=== PATIENT | female | born 1995 | race Hispanic/Latino ===

== ENCOUNTER 2019-01-28 07:24 | Emergency (ER) | payer SELFPAY ==
[2019-01-28] MEDS ORDERED: NA CHLORIDE 0.9% 1,000 ML ONE (08:10)
[2019-01-28] MEDS ORDERED: ONDANSETRON 4 MG/2 ML VIAL ONE (08:10)
[2019-01-28 08:22] LABS: Absolute Lymphocytes (CBC) 0.5 K/uL (0.7-4.9); Absolute Monocytes 0.4 K/uL (0.1-1.3); Absolute Neutrophil 6.3 K/uL (1.8-8.0); Basophils % 0.1 % (0-1.3); Eosinophils % 0.2 % (0-4.4); Hematocrit 38.6 % (36.0-45.0); MPV 9.1 fL (7.6-11.3); Monocytes % 5.2 % (3.3-12.3); RBC Red Blood Cell Count 4.34 M/uL (3.86-4.86)
[2019-01-28 08:32] LABS: ALT/SGPT 35 U/L (12-78); AST/SGOT 26 U/L (15-37); Albumin 3.9 g/dL (3.4-5.0); Alkaline Phosphatase 54 U/L (45-117); BUN Blood Urea Nitrogen 10 mg/dL (7-18); Bicarbonate 26 mmol/L (21-32); Bilirubin Direct 0.1 mg/dL (0-0.2); Bilirubin Total 0.4 mg/dL (0.2-1.0); Glucose Level 96 mg/dL (74-106); Lipase 80 U/L (73-393); Potassium 3.6 mmol/L (3.5-5.1); Protein, Total 7.9 g/dL (6.4-8.2); Sodium Level 140 mmol/L (136-145)
[2019-01-28 08:53] LABS: Blood Morphology Comment NOT SEEN (NOT SEEN); Platelet Estimate ADEQ
[2019-01-28] MEDS ORDERED: FAMOTIDINE 20 MG/2 ML VIAL IV ONE (08:56)
[2019-01-28] MEDS ORDERED: KETOROLAC 30 MG/ML INJ ONE (09:05)
--- NOTE | 2019-01-28 09:47 | RAD REPORT ---
EXAM DESCRIPTION: CT - Abdomen Pelvis W Contrast - 01/28/2019 9:06 am CLINICAL HISTORY: Abdominal pain with vomiting and diarrhea COMPARISON: 2015 TECHNIQUE: Computed axial tomography of the abdomen pelvis was obtained. 100 cc Isovue-300 was admin istered intravenously. Oral contrast was not requested which limits evaluation of bowel. All CT scans are performed using dose optimization technique as appropriate and may include automated exposure control or mA/KV adjustment according to patient size. FINDINGS: A 17 millimeter enhancing lesion within the right lobe of the liver is unchanged. Prominen ce of the left lobe of the liver is unchanged. Hepatic and splenic granulomata Pancreas, adrenal and kidneys appear unremarkable. There is no evidence of diverticulitis. The appendix is normal. An adnexal mass is not seen. An IUD is present within uterine body. IMPRESSION: An IUD is low lying within the uterine body. Stable 17 millimeter enhancing hepatic lesion likely represents a hemangioma
--- NOTE | 2019-01-28 10:07 | EDPHYS ---
Physician Documentation [facility] Name: Allison Lock Age: 23 yrs Sex: Female : 1995 Arrival Date: 01/28/2019 Time: 07:25 Bed 14 Private MD: ED Physician Lee Fernandez HPI: 01/28 07:45 This 23 yrs old Female presents to ER via Ambulatory with complaints of kdr Abdominal Pain, Vomiting/Diarrhea. 07:45 The patient presents to the emergency department with nausea, that is mild, that is kdr moderate, vomiting, that is intermittent, diarrhea, that is intermittent, abdominal pain, of the abdomen diffusely. Onset: The symptoms/episode began/occurred The patient ate a hamburger last night and about an hour later, she began to have vomiting and diarrhea. Also generalized abdominal pain. Possible causes: bad food exposure, hamburger. The symptoms are aggravated by nothing. The symptoms are alleviated by nothing. Associated signs and symptoms: Pertinent positives: abdominal pain, diarrhea, nausea, vomiting. Severity of symptoms: At their worst the symptoms were mild moderate just prior to arrival, in the emergency department the symptoms are unchanged. The patient has not experienced similar symptoms in the past. The patient has not recently seen a physician. 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 - Social history:: Smoking status: Patient/guardian denies using tobacco. - Ebola Screening: : Patient negative for fever greater than or equal to 101.5 degrees Fahrenheit, and additional compatible Ebola Virus Disease symptoms Patient denies exposure to infectious person Patient denies travel to an Ebola-affected area in the 21 days before illness onset No symptoms or risks identified at this time. ROS: 07:45 Constitutional: Negative for fever, chills, and weight loss, Eyes: Negative for injury, kdr pain, redness, and discharge, ENT: Negative for injury, pain, and discharge, Neck: Negative for injury, pain, and swelling, Cardiovascular: Negative for chest pain, palpitations, and edema, Respiratory: Negative for shortness of breath, cough, wheezing, and pleuritic chest pain, Back: Negative for injury and pain, : Negative for injury, bleeding, discharge, and swelling, MS/Extremity: Negative for injury and deformity, Skin: Negative for injury, rash, and discoloration, Neuro: Negative for headache, weakness, numbness, tingling, and seizure activity. Psych: Negative for depression, anxiety, suicide ideation, homicidal ideation, and hallucinations, Allergy/Immunology: Negative for hives, rash, and allergies, Endocrine: Negative for neck swelling, polydipsia, polyuria, polyphagia, and marked weight changes, Hematologic/Lymphatic: Negative for swollen nodes, abnormal bleeding, and unusual bruising. 07:45 Abdomen/GI: Positive for abdominal pain, nausea, vomiting, and diarrhea, abdominal cramps, Negative for constipation, abdominal distension, anorexia, dysphagia, hematemesis, black/tarry stool, rectal pain, rectal bleeding, bowel incontinence. Exam: 07:45 Constitutional: This is a well developed, well nourished patient who is awake, alert, kdr and in no acute distress. Head/Face: Normocephalic, atraumatic. Eyes: Pupils equal round and reactive to light, extra-ocular motions intact. Lids and lashes normal. Conjunctiva and sclera are non-icteric and not injected. Cornea within normal limits. Periorbital areas with no swelling, redness, or edema. Neck: Trachea midline, no thyromegaly or masses palpated, and no cervical lymphadenopathy. Supple, full range of motion without nuchal rigidity, or vertebral point tenderness. No Meningismus. Chest/axilla: Normal chest wall appearance and motion. Nontender with no deformity. No lesions are appreciated. Cardiovascular: Regular rate and rhythm with a normal S1 and S2. No gallops, murmurs, or rubs. Normal PMI, no JVD. No pulse deficits. Respiratory: Lungs have equal breath sounds bilaterally, clear to auscultation and percussion. No rales, rhonchi or wheezes noted. No increased work of breathing, no retractions or nasal flaring. Skin: Warm, dry with normal turgor. Normal color with no rashes, no lesions, and no evidence of cellulitis. MS/ Extremity: Pulses equal, no cyanosis. Neurovascular intact. Full, normal range of motion. Neuro: Awake and alert, GCS 15, oriented to person, place, time, and situation. Cranial nerves II-XII grossly intact. Motor strength 5/5 in all extremities. Sensory grossly intact. Cerebellar exam normal. Normal gait. Psych: Awake, alert, with orientation to person, place and time. Behavior, mood, and affect are within normal limits. 07:45 Abdomen/GI: Inspection: abdomen appears normal, Bowel sounds: diminished, in all quadrants, Palpation: soft, mild abdominal tenderness, in all quadrants, The patient also had mild back pain. Vital Signs: 07:33 BP 104 / 69; Pulse 98; Resp 16; Temp 98.9; Pulse Ox 99% ; Weight 62.14 kg; Height 5 ft. bp 4 in. (162.56 cm); 08:30 BP 103 / 68; Pulse 94; Resp 14; Pulse Ox 100% ; bp 07:33 Body Mass Index 23.52 (62.14 kg, 162.56 cm) bp MDM: 10:05 Patient medically screened. kdr 13:36 Data reviewed: vital signs, nurses notes, lab test result(s), radiologic studies. kdr Counseling: I had a detailed discussion with the patient and/or guardian regarding: the historical points, exam findings, and any diagnostic results supporting the discharge/admit diagnosis, lab results, radiology results, the need for outpatient follow up. 01/28 07:44 Order name: Basic Metabolic Panel; Complete Time: 08:39 kdr 01/28 07:44 Order name: CBC with Diff; Complete Time: 09:34 kdr 01/28 07:44 Order name: Creatinine for Radiology; Complete Time: 08:39 kdr 01/28 07:44 Order name: Hepatic Function; Complete Time: 08:39 kdr 01/28 07:44 Order name: Lipase; Complete Time: 08:39 kdr 01/28 08:04 Order name: Urine Dipstick--Ancillary (enter results) eb 01/28 07:44 Order name: IV Saline Lock; Complete Time: 08:08 kdr 01/28 08:04 Order name: Urine --Ancillary (enter results) eb 01/28 08:30 Order name: Manual Differential; Complete Time: 09:34 EDMS 01/28 08:43 Order name: CT Abd/Pelvis - W/Contrast; Complete Time: 10:03 kdr 01/28 07:44 Order name: Labs collected and sent; Complete Time: 08:08 kdr 01/28 07:45 Order name: Urine Test (obtain specimen); Complete Time: 08:08 kdr Administered Medications: 08:00 Drug: Zofran 4 mg Route: IVP; Site: right forearm; bp 08:58 Follow up: Response: Nausea is decreased bp 08:00 Drug: NS 0.9% 1000 ml Route: IV; Rate: 1 bolus; Site: right forearm; bp 08:45 Drug: Pepcid 20 mg {Note: RECD FROM PHARMACY AT 0845.} Route: IVP; Site: right forearm; bp 08:58 Follow up: Response: Nausea is decreased bp 08:55 Drug: TORadol 15 mg Route: IVP; Site: right forearm; bp 10:24 Follow up: Response: No adverse reaction bp Disposition: 01/28/19 10:05 Discharged to Home. Impression: Abdominal and pelvic pain, Nausea and vomiting, Diarrhea, unspecified, Gastroenteritis. - Condition is Stable. - Discharge Instructions: Food Choices to Help Relieve Diarrhea, Adult, Nausea and Vomiting, Adult, [id number], Abdominal Pain, Adult, [id number], Diarrhea, Adult, [id number]. - Prescriptions for Bentyl 20 mg Oral Tablet - take 1 tablet by ORAL route every 6 hours As needed; 20 tablet. Pepcid 20 mg Oral Tablet - take 1 tablet by ORAL route every 12 hours for 5 days; 10 tablet. Zofran 4 mg Oral Tablet - take 1 tablet by ORAL route every 12 hours As needed; 6 tablet. Tramadol 50 mg Oral Tablet - take 1 tablet by ORAL route every 8 hours as needed; 12 tablet. - Medication Reconciliation Form, Thank You Letter, Prescription Opioid Use, Work release form form. - Follow up: Private Physician; When: 2 - 3 days; Reason: If symptoms return, Further diagnostic work-up, Recheck today's complaints, Continuance of care, Re-evaluation by your physician. - Problem is new. - Symptoms have improved. Signatures: Dispatcher [employer] EDMS Lee Fernandez MD MD kdr Humberto Bowden, RN RN bp Corrections: (The following items were deleted from the chart) 10:34 10:05 01/28/2019 10:05 Discharged to Home. Impression: Abdominal and pelvic pain; bp Nausea and vomiting; Diarrhea, unspecified; Gastroenteritis. Condition is Stable. Forms are Medication Reconciliation Form, Thank You Letter, Antibiotic Education, Prescription Opioid Use. Follow up: Private Physician; When: 2 - 3 days; Reason: If symptoms return, Further diagnostic work-up, Recheck today's complaints, Continuance of care, Re-evaluation by your physician. Problem is new. Symptoms have improved. kdr
--- NOTE | 2019-01-28 10:07 | ER ---
Nurse's Notes [facility] Name: Allison Lock Age: 23 yrs Sex: Female : 1995 Arrival Date: 01/28/2019 Time: 07:25 Bed 14 Private MD: Diagnosis: Abdominal and pelvic pain;Nausea and vomiting;Diarrhea, unspecified;Gastroenteritis Presentation: 01/28 07:32 Presenting complaint: Patient states: DIFFUSE ABDOMINAL PAIN WITH NAUSEA, VOMITING AND bp DIARRHEA. Transition of care: patient was not received from another setting of care. Onset of symptoms was January 27, 2019 at 23:00. Risk Assessment: Do you want to hurt yourself or someone else? Patient reports no desire to harm self or others. Initial Sepsis Screen: Does the patient meet any 2 criteria? No. Patient's initial sepsis screen is negative. Does the patient have a suspected source of infection? No. Patient's initial sepsis screen is negative. Care prior to arrival: None. 07:32 Method Of Arrival: Ambulatory bp 07:32 Acuity: IRAJ 3 bp Triage Assessment: 07:33 General: Appears in no apparent distress. uncomfortable, slender, Behavior is bp cooperative, appropriate for age, anxious. Pain: Complains of pain in abdomen. EENT: No deficits noted. Neuro: Level of Consciousness is awake, alert, obeys commands, Oriented to person, place, time, situation, Appropriate for age. Cardiovascular: No deficits noted. Respiratory: Airway is patent Respiratory effort is even, unlabored, Respiratory pattern is regular, symmetrical. GI: Reports lower abdominal pain, upper abdominal pain, cramping, diarrhea, nausea, vomiting. : No signs and/or symptoms were reported regarding the genitourinary system. Derm: No deficits noted. Musculoskeletal: Circulation, motion, and sensation intact. Range of motion: intact in all extremities. 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 - Social history:: Smoking status: Patient/guardian denies using tobacco. - Ebola Screening: : Patient negative for fever greater than or equal to 101.5 degrees Fahrenheit, and additional compatible Ebola Virus Disease symptoms Patient denies exposure to infectious person Patient denies travel to an Ebola-affected area in the 21 days before illness onset No symptoms or risks identified at this time. Screenin:35 Abuse screen: Denies threats or abuse. Denies injuries from another. Nutritional bp screening: No deficits noted. Tuberculosis screening: No symptoms or risk factors identified. Fall Risk None identified. Assessment: 07:35 General: SEE TRIAGE NOTE. 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 bp 09:10 Reassessment: PT RETURNED FROM CT. ALL CURRENT ORDERS COMPLETE. bp 10:26 Reassessment: PT D/C HOME AMBULATORY WITH FAMILY, DX WITH ABDOMINAL PAIN. bp 10:32 GI: Bowel sounds present X 4 quads. bp 10:33 GI: Abd is soft. bp Vital Signs: 07:33 BP 104 / 69; Pulse 98; Resp 16; Temp 98.9; Pulse Ox 99% ; Weight 62.14 kg; Height 5 ft. bp 4 in. (162.56 cm); 08:30 BP 103 / 68; Pulse 94; Resp 14; Pulse Ox 100% ; bp 07:33 Body Mass Index 23.52 (62.14 kg, 162.56 cm) bp ED Course: 07:25 Patient arrived in ED. as 07:27 Lee Fernandez MD is Attending Physician. kdr 07:30 Humberto Bowden, ANGEL is Primary Nurse. bp 07:33 Triage completed. bp 07:33 Arm band placed on left wrist. bp 07:35 Patient has correct armband on for positive identification. Bed in low position. Call bp light in reach. Side rails up X2. 08:00 Inserted saline lock: 20 gauge in right forearm, using aseptic technique. Blood bp collected. 09:08 CT Abd/Pelvis - W/Contrast In Process Unspecified. EDMS 10:27 No provider procedures requiring assistance completed. IV discontinued, intact, bp bleeding controlled, No redness/swelling at site. Pressure dressing applied. Administered Medications: 08:00 Drug: Zofran 4 mg Route: IVP; Site: right forearm; bp 08:58 Follow up: Response: Nausea is decreased bp 08:00 Drug: NS 0.9% 1000 ml Route: IV; Rate: 1 bolus; Site: right forearm; bp 08:45 Drug: Pepcid 20 mg {Note: RECD FROM PHARMACY AT 0845.} Route: IVP; Site: right forearm; bp 08:58 Follow up: Response: Nausea is decreased bp 08:55 Drug: TORadol 15 mg Route: IVP; Site: right forearm; bp 10:24 Follow up: Response: No adverse reaction bp Outcome: 10:05 Discharge ordered by . kdr 10:28 Discharged to home ambulatory, with family. bp 10:28 Condition: stable 10:28 Discharge instructions given to patient, family, Instructed on discharge instructions, follow up and referral plans. medication usage. 10:34 Patient left the ED. bp Signatures: Dispatcher [employer] EDMS Lee Fernandez MD MD kdr Martinez, Amelia as Peltier, Brian, RN RN bp
[2019-01-28 11:18] LABS: Urine Blood 3+ (NEG); Urine Glucose NEGATIVE (NEG); Urine Protein 1+ (NEG); Urine Specific Gravity 1.015 (1.005-1.030); Urine pH 7.5 (5.0-7.0)
== END 2019-01-28 10:34 | disposition home or self-care (01) ==
LOC: ER 07:24
DX: K52.9 Noninfective gastroenteritis and colitis, unspecified (principal); F41.9 Anxiety disorder, unspecified
CPT/HCPCS: 36415; 74177; 80048; 80076; 81003; 81025; 83690; 85025; 96374; 96375; 99284; J2405; J7030; Q9967

== ENCOUNTER 2020-05-03 14:02 | Emergency (ER) | payer SELFPAY, OTHER ==
--- NOTE | 2020-05-03 15:26 | ER ---
Nurse's Notes [facility] Name: Allison Lock Age: 24 yrs Sex: Female : 1995 Arrival Date: 05/03/2020 Time: 14:05 Bed 20 Private MD: Diagnosis: Acute upper respiratory infection, unspecified Presentation: 05/03 14:32 Chief complaint: Patient states: Fever, headaches, body aches, cough and feeling ill ca1 since yesterday. 4-5 weeks. Coronavirus screen: Patient reports a cough. Patient denies shortness of breath or difficulty breathing. Patient reports a measured and/or subjective temperature greater than 100.4F. Patient denies travel on a cruise ship or to a country the [facility] currently lists as an affected area. Patient denies contact with known and/or suspected case of COVID-19. Surgical mask in place. Instructed on keeping mask at all times and keep 6 feet distance from other people in the lobby. Verbalized understanding. Ebola Screen: Patient negative for fever greater than or equal to 101.5 degrees Fahrenheit, and additional compatible Ebola Virus Disease symptoms Patient denies exposure to infectious person. Patient denies travel to an Ebola-affected area in the 21 days before illness onset. No symptoms or risks identified at this time. Initial Sepsis Screen: Does the patient meet any 2 criteria? No. Patient's initial sepsis screen is negative. Does the patient have a suspected source of infection? No. Patient's initial sepsis screen is negative. Risk Assessment: Do you want to hurt yourself or someone else? Patient reports no desire to harm self or others. Onset of symptoms was May 03, 2020. 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 - Social history:: Smoking status: Patient denies any tobacco usage or history of. Screenin:56 Abuse screen: Denies threats or abuse. Nutritional screening: No deficits noted. ll1 Tuberculosis screening: No symptoms or risk factors identified. Fall Risk None identified. Total Amaro Fall Scale indicates No Risk (0-24 pts). Assessment: 15:54 General: Appears uncomfortable, Behavior is calm, cooperative. Pain: Complains of pain ll1 in head Pain currently is 6 out of 10 on a pain scale. Quality of pain is described as aching. Neuro: Level of Consciousness is awake, alert, obeys commands, Oriented to person, place, time, situation, Appropriate for age Exhauster are equal bilaterally Moves all extremities. Full function Gait is steady, Speech is normal, Facial symmetry appears normal, Reports numbness. Cardiovascular: No deficits noted. Respiratory: Reports cough that is Airway is patent Trachea midline Respiratory effort is even, unlabored, Respiratory pattern is regular, symmetrical, Breath sounds are clear bilaterally. GI: Bowel sounds present X 4 quads. Abd is soft and non tender X 4 quads. Reports nausea, vomiting, 4-5 weeks . Musculoskeletal: Reports body aches. Vital Signs: 14:32 BP 113 / 77; Pulse 87; Resp 15 S; Temp 98.3(TE); Pulse Ox 100% on R/A; Weight 64.41 kg ca1 (R); Height 5 ft. 4 in. (162.56 cm) (R); 14:32 Body Mass Index 24.37 (64.41 kg, 162.56 cm) ca1 ED Course: 14:05 Patient arrived in ED. mr 14:35 Triage completed. ca1 14:35 Arm band placed on right wrist. ca1 14:47 Kaz Urrutia, ANGEL is Primary Nurse. ll1 14:50 Keturah Rubio FNP-C is [facility]. kb 14:50 Lee Fernandez MD is Attending Physician. kb 15:56 Patient has correct armband on for positive identification. Bed in low position. Call ll1 light in reach. Side rails up X 1. 15:56 No provider procedures requiring assistance completed. Patient did not have IV access ll1 during this emergency room visit. 05/04 09:22 Health Dept notified/ PUI # [id number]/ Maddie from lab notified. eb Administered Medications: 05/03 15:43 Drug: Tylenol 1000 mg Route: PO; ll1 15:54 Follow up: Response: No adverse reaction; Pain is decreased; RASS: Alert and Calm (0) 1 15:43 Drug: Phenergan 12.5 mg Route: PO; ll1 15:53 Follow up: Response: No adverse reaction; Nausea is decreased; RASS: Alert and Calm (0) ll1 Outcome: 15:25 Discharge ordered by MD. [place] 15:56 Discharged to home ambulatory. ll1 15:56 Condition: stable 15:56 Discharge instructions given to patient, Instructed on discharge instructions, follow up and referral plans. Demonstrated understanding of instructions, follow-up care. 15:56 Patient left the ED. 1 Signatures: Keturah Rubio, DIRECTOR LIFE SCIENCES-C DIRECTOR LIFE SCIENCES-Gina Shah mr Alma Ragland Cheryl RN RN ca1 Kaz Urrutia RN RN ll1
--- NOTE | 2020-05-03 15:26 | EDPHYS ---
Physician Documentation [facility] Name: Allison Lock Age: 24 yrs Sex: Female : 1995 Arrival Date: 05/03/2020 Time: 14:05 Bed 20 Private MD: ED Physician Lee Fernandez HPI: 05/03 15:23 This 24 yrs old Female presents to ER via Ambulatory with complaints of 4wks kb , Cough, Fever. 15:23 The patient or guardian reports cough, that is intermittent, described as mild, with no kb sputum, flu symptoms, low-grade fever. Onset: The symptoms/episode began/occurred yesterday. Severity of symptoms: At their worst the symptoms were mild, in the emergency department the symptoms are unchanged. Modifying factors: The symptoms are alleviated by nothing, the symptoms are aggravated by nothing. Associated signs and symptoms: Pertinent positives: fever, Pertinent negatives: chest pain, diarrhea, ear ache, nausea, rhinorrhea, sore throat, vomiting. The patient has not experienced similar symptoms in the past. The patient has not recently seen a physician. Pt reports cough, fever and chills since yesterday. States she is approx 4 weeks so she wasn't sure what she could take for the symptoms. COURT LIAISON: 14:35 2, Full Term 1, Living 1, LMP 03/28/2020 ca1 Historical: - Allergies: 14:35 No Known Allergies; ca1 - Home Meds: 14:35 Vitamin Oral [Active]; ca1 - PMHx: 14:35 Anxiety; ca1 - PSHx: 14:35 None; ca1 - Immunization history:: Adult Immunizations up to date. - Social history:: Smoking status: Patient denies any tobacco usage or history of. ROS: 15:21 Neck: Negative for injury, pain, and swelling, Cardiovascular: Negative for chest pain, kb palpitations, and edema, Abdomen/GI: Negative for abdominal pain, nausea, vomiting, diarrhea, and constipation, Back: Negative for injury and pain, MS/Extremity: Negative for injury and deformity, Skin: Negative for injury, rash, and discoloration, Neuro: Negative for headache, weakness, numbness, tingling, and seizure. 15:21 Constitutional: Positive for chills, fever, Negative for body aches, fatigue, malaise, poor PO intake, weight loss. 15:21 Respiratory: Positive for cough, Negative for dyspnea on exertion, hemoptysis, orthopnea, pleurisy, shortness of breath, sputum production, wheezing. Exam: 15:21 Constitutional: This is a well developed, well nourished patient who is awake, alert, kb and in no acute distress. Head/Face: Normocephalic, atraumatic. ENT: Nares patent. No nasal discharge, no septal abnormalities noted. Tympanic membranes are normal and external auditory canals are clear. Oropharynx with no redness, swelling, or masses, exudates, or evidence of obstruction, uvula midline. Mucous membranes moist. Neck: Trachea midline, no thyromegaly or masses palpated, and no cervical lymphadenopathy. Supple, full range of motion without nuchal rigidity, or vertebral point tenderness. No Meningismus. Chest/axilla: Normal chest wall appearance and motion. Nontender with no deformity. No lesions are appreciated. Cardiovascular: Regular rate and rhythm with a normal S1 and S2. No gallops, murmurs, or rubs. Normal PMI, no JVD. No pulse deficits. Respiratory: Lungs have equal breath sounds bilaterally, clear to auscultation and percussion. No rales, rhonchi or wheezes noted. No increased work of breathing, no retractions or nasal flaring. Abdomen/GI: Soft, non-tender, with normal bowel sounds. No distension or tympany. No guarding or rebound. No evidence of tenderness throughout. Skin: Warm, dry with normal turgor. Normal color with no rashes, no lesions, and no evidence of cellulitis. MS/ Extremity: Pulses equal, no cyanosis. Neurovascular intact. Full, normal range of motion. Neuro: Awake and alert, GCS 15, oriented to person, place, time, and situation. Cranial nerves II-XII grossly intact. Motor strength 5/5 in all extremities. Sensory grossly intact. Cerebellar exam normal. Normal gait. Vital Signs: 14:32 BP 113 / 77; Pulse 87; Resp 15 S; Temp 98.3(TE); Pulse Ox 100% on R/A; Weight 64.41 kg ca1 (R); Height 5 ft. 4 in. (162.56 cm) (R); 14:32 Body Mass Index 24.37 (64.41 kg, 162.56 cm) ca1 MDM: 14:50 Patient medically screened. kb 15:22 Data reviewed: vital signs, nurses notes. Data interpreted: Pulse oximetry: on room air kb is 100 %. Interpretation: normal. Counseling: I had a detailed discussion with the patient and/or guardian regarding: the historical points, exam findings, and any diagnostic results supporting the discharge/admit diagnosis, the need for outpatient follow up, a family practitioner, to return to the emergency department if symptoms worsen or persist or if there are any questions or concerns that arise at home. 05/03 15:09 Order name: COVID-19 kb Administered Medications: 15:43 Drug: Tylenol 1000 mg Route: PO; ll1 15:54 Follow up: Response: No adverse reaction; Pain is decreased; RASS: Alert and Calm (0) ll1 15:43 Drug: Phenergan 12.5 mg Route: PO; ll1 15:53 Follow up: Response: No adverse reaction; Nausea is decreased; RASS: Alert and Calm (0) ll1 Disposition: 05/04 15:55 Co-signature as Attending Physician, Lee Fernandez MD I agree with the assessment and kdr plan of care. Disposition: 05/03/20 15:25 Discharged to Home. Impression: Acute upper respiratory infection, unspecified. - Condition is Stable. - Discharge Instructions: Viral Respiratory Infection, [id number], COVID-19. - Medication Reconciliation Form, Thank You Letter, Antibiotic Education, Prescription Opioid Use form. - Follow up: Emergency Department; When: As needed; Reason: Worsening of condition. Follow up: Private Physician; When: 2 - 3 days; Reason: Recheck today's complaints, Continuance of care, Re-evaluation by your physician. Addendum: 05/06/2020 10:14 Addendum: Pt has been called 3 times to notify of COVID + results, no answer. . r n Signatures: Dispatcher [employer] EDKeturah Rowland, Lee Harrison MD MD kdr Nieto, Roman, MD MD rn Acnatty, Jessica, RN RN ca1 Kaz Urrutia RN RN ll1 Corrections: (The following items were deleted from the chart) 05/03 15:56 15:25 05/03/2020 15:25 Discharged to Home. Impression: Acute upper respiratory ll1 infection, unspecified. Condition is Stable. Forms are Medication Reconciliation Form, Thank You Letter, Antibiotic Education, Prescription Opioid Use. Follow up: Emergency Department; When: As needed; Reason: Worsening of condition. Follow up: Private Physician; When: 2 - 3 days; Reason: Recheck today's complaints, Continuance of care, Re-evaluation by your physician. kb
[2020-05-03] MEDS ORDERED: ACETAMINOPHEN 500 MG TAB ONE (15:37)
[2020-05-03] MEDS ORDERED: PROMETHAZINE 25 MG TABLET ONE (15:37)
--- OUTSIDE RECORDS SUMMARY | 2020-05-03 15:46 | XMS REPORT | Summary of Care ---
:1995 Author Organization [facility] - Health Address [address] [place] [id number] Care Team Providers Name Role Phone Shruti Ferrer [facility] Primary Care Provider [phone] Encounter Details Date Type Department Care Team Description 04/26/2020 Orders Only [facility] Doctor Unassigned, No [address] [facility] [place] [address] [address] [place] [address] Allergies No Known Allergiesdocumented as of this encounter (statuses as of 04/26/2020) Medications Medication Sig Dispensed Refills Start Date End Date Status norgestimate-ethinyl Take 1 tablet by 3 Package 0 11/12/2017 Active estradiol mouth daily. 0.18/0.215/0.25 mg-35 mcg (28) tabletIndications: Irregular menstrual cycle, Encounter for initial prescription of contraceptive pills Hospital, Clinic, or Other Ordered Dose Route Frequency Start Date End Date Status Facility Administered Medication medroxyPROGESTERone 150 mg IM [id number] 09/16/2017 Active (DEPO-PROVERA) injection 150 mgIndications: Depo-Provera contraceptive status documented as of this encounter (statuses as of 04/26/2020) Active Problems Problem Noted Date Decreased libido 02/03/2018 Encounter for contraceptive management, unspecified ty pe 09/16/2017 Family planning, IUD (intrauterine device) check/reins ertion/removal 09/16/2017 Depo-Provera contraceptive status 09/16/2017 Encounter for IUD insertion 12/03/2016 Well woman exam 11/18/2016 Other general counseling and advice for contraceptive management 11/18/2016 Lump or mass in breast 11/18/2016 documented as of this encounter (statuses as of 04/26/2020) Immunizations Name Administration Dates Next Due HPV9 11/18/2016 TDAP 10/26/2014 documented as of this encounter Social History Tobacco Use Types Packs/Day Years Used Date Never Smoker Smokeless Tobacco: Never Used Alcohol Use Drinks/Week oz/Week Comments No 0 Standard drinks or equivalent 0.0 Sex Assigned at Date Recorded Not on file Job Start Date Occupation Industry Not on file Not on file Not on file Travel History Travel Start Travel End No recent travel history available. documented as of this encounter Last Filed Vital Signs Not on filedocumented in this encounter Plan of Treatment Date Type Specialty Care Team Description 04/26/2020 Initial Visit [facility] [place], [employer] [address] [place] [address] 15 [phone] Health Maintenance Due Date Last Done Comments VARICELLA VACCINES (1 of 2 - 1998 2-dose childhood series) MENINGOCOCCAL B VACCINES (1 of 12/26/2007 2 - Risk Bexsero 2-dose series) Depression Screening 2009 HPV VACCINES (2 - Female 12/16/2016 11/18/2016 3-dose series) CHLAMYDIA SCREENING 12/03/2017 12/03/2016, 11/18/2016 PAP SMEAR 2018 INFLUENZA VACCINE (#1) 2020 DTaP,Tdap,and Td Vaccines (2 - 10/26/2024 10/26/2014 Td) MENINGOCOCCAL VACCINE Aged Out No longer eligible based on patient's age to complete this to pic PNEUMOCOCCAL 0-64 YEARS Aged Out No longe r eligible based COMBINED SERIES on patient's age to complete this to pic documented as of this encounter Procedures Procedure Name Priority Date/Time Associated Diagnosis Comme nts ASSIGNMENT OF BENEFITS Routine 04/26/2020 2:03 PM CDT documented in this encounter Results Not on filedocumented in this encounter Insurance Payer Benefit Plan Subscriber ID Effective Phone Address Typ e / Group Dates [facility] xxxxxxxxx 2017-Pres [phone] Medicaid WOMEN ent [address] [place] [address] documented as of this encounter
--- OUTSIDE RECORDS SUMMARY | 2020-05-03 15:46 | XMS REPORT | Continuity of Care Document ---
:[address] [facility] [place] [place] t Address [address] [place] [address] Care Team Providers Name Role Phone Sergio LAZAR, Raul Attending Clinician Problems This patient has no known problems. Allergies, Adverse Reactions, Alerts This patient has no known allergies or adverse reactions. Medications This patient has no known medications. Procedures This patient has no known procedures. Encounters Start End Encounter Admission Attending Care Care Encounter Source Date/Time Date/Time Type Type Clinicians Facility Department ID 2020-04-26 2020-04-26 Initial Sergio [facility] [phone] [id number] 14:21:48 15:50:49 Symone Carter PARTS PERSON [id number] Visit REGIONAL [id number] MATERNAL [id number] & CHILD [address] [place] [address] Results This patient has no known results.
--- OUTSIDE RECORDS SUMMARY | 2020-05-03 15:47 | XMS REPORT | Summary of Care ---
:1995 Author Organization [facility] Address [address] [place] [id number] Care Team Providers Name Role Phone Shruti Ferrer [facility] Primary Care Provider Reason for Visit Reason Comments Initial Visit Encounter Details Date Type Department Care Team Description 04/26/2020 Initial [facility] pervision of high risk in first trimester (Primary Dx); Visit CADY Raya Multiparity [address] [facility], [place] [address] [facility] [place] [id number] [phone] Allergies No Known Allergiesdocumented as of this encounter (statuses as of 04/26/2020) Medications Medication Sig Dispensed Refills Start Date End Date Status norgestimate-ethinyl Take 1 tablet 3 Package 0 11/12/20170 11/2019 Discontinued estradiol by mouth 0.18/0.215/0.25 daily. mg-35 mcg (28) tabletIndications: Irregular menstrual cycle, Encounter for initial prescription of contraceptive pills Hospital, Clinic, or Other Ordered Dose Route Frequency Start Date End Date Status Facility Administered Medication medroxyPROGESTERone 150 mg IM [id number] 09/16/2017 Active (DEPO-PROVERA) injection 150 mgIndications: Depo-Provera contraceptive status documented as of this encounter (statuses as of 04/26/2020) Active Problems Problem Noted Date Supervision of high risk in first trimester 04/26/2020 Multiparity 04/26/2020 Estimated Date of Delivery Comments Yes 01/02/2021 Based on last menstr ual period of 03/28/2020 (Approximate) documented as of this encounter (statuses as of 04/26/2020) Resolved Problems Problem Noted Date Resolved Date Decreased libido 02/03/2018 04/26/2020 Encounter for contraceptive management, unspecified type 04/26/2020 Family planning, IUD (intrauterine device) 09/16/2017 04/26/2020 check/reinsertion/removal Depo-Provera contraceptive status 09/16/20172019 Encounter for IUD insertion 12/03/2016 04/26/2020 Well woman exam 11/18/2016 04/26/2020 Other general counseling and advice for contraceptive 201604/26/2020 management Lump or mass in breast 11/18/2016 04/26/2020 documented as of this encounter (statuses as of 04/26/2020) Immunizations Name Administration Dates Next Due HPV9 11/18/2016 TDAP 10/26/2014 documented as of this encounter Social History Tobacco Use Types Packs/Day Years Used Date Never Smoker Smokeless Tobacco: Never Used Alcohol Use Drinks/Week oz/Week Comments No 0 Standard drinks or equivalent 0.0 Estimated Date of Delivery Comments Yes 01/02/2021 Based on last menstr ual period of 03/28/2020 (Approximate) Sex Assigned at Date Recorded Not on file Job Start Date Occupation Industry Not on file Not on file Not on file Travel History Travel Start Travel End No recent travel history available. COVID-19 Exposure Response Date Recorded In the last month, have you been in contact with No / Unsure 04/26/2020 2:49 PM CDT someone who was confirmed or suspected to have Coronavirus / COVID-19? documented as of this encounter Last Filed Vital Signs Vital Sign Reading Time Taken Comments Blood Pressure 120/74 04/26/2020 2:51 PM CDT Pulse 91 04/26/2020 2:51 PM CDT Temperature 37.7 C (99.8 F) 04/26/2020 2:51 PM CDT Respiratory Rate 16 04/26/2020 2:51 PM CDT Oxygen Saturation - - Inhaled Oxygen Concentration - - Weight 64.5 kg (142 lb 2 oz) 04/26/2020 2:51 PM CDT Height 162.6 cm (5' 4") 04/26/2020 2:51 PM CDT Body Mass Index 24.4 04/26/2020 2:51 PM CDT documented in this encounter Patient Instructions Patient InstructionsDiallo Rowland RN - 04/26/2020 2:30 PM CDT Patient Education Pautas de prevencin para mujeres de entre 18 y 39aos de edad Las pruebas de deteccin y las vacunas son importantes para el manejo de robbins lexus. Las pruebas de deteccin se realizan para detectar posibles trastornos o enfermedades en personas que no tienen ningn sntoma. El objetivo es encontrar savannah enfermedad de manera temprana para poder hacer cambios en el estilo de shubham y para que lo puedan controlar de cerca para reducir los riesgos de sufrir savannah enfermedad, o para detectarla a tiempo y poder tratarla de manera eficaz. Las pruebas de deteccin no son pruebas de diagnstico, wilfredo se usan para decidir si se deben realizar otros estudios. La consejera sobre robbins lexus tambin es esencial. A continuacin, narcisa pautas en relacin con esos temas para mujeres de entre 18 y 39aos de edad. Hable con robbins proveedor de atencin mdica para asegurarse de que est al da con todo lo que necesita. Prueba de deteccin Para quines Frecuencia Uso indebido del alcohol Todas las mujeres de reva anup de edad En los exmenes de rutina Presin arterial Todas las mujeres de reva anup de edad Chequeo anual si robbins presin arterial es normal La presin arterial normal es aubree que 120/80mmHg Si la lectura de robbins presin arterial es ms gamaliel que lo normal, siga las indicaciones de robbins proveedor de atencin mdica Cncer de mama Todas las mujeres de reva anup de edad deben hablar con henrietta proveedores de atencin mdica sobre la necesidad de realizar exmenes clnicos de mamas (CBE)1 Examen clnico de mamascada 3 aos1 Cncer del calra uterino Las mujeres de 21 aos o ms Las mujeres de entre 21 y 29 aos deben hacer un Papanicolau cada navi aos; las mujeres de entre 30 y 65 deben hacerse un Papanicolau y tambin savannah prueba de VPH cada saurav aos Clamidia Las mujeres sexualmente activas menores de 24 aos y las mujeres que tienen mayor riesgo de infeccin Cada navi aos si tiene riesgo o si tiene sntomas Depresin Todas las mujeres de reva anup de edad En los exmenes de rutina Diabetes tipo 2, prediabetes Las adultas que no tengan sntomas, que tengan sobrepeso o que angie obesas y tengan josé manuel o ms riesgos adicionales de diabetes Al menos cada navi aos Adems, anlisis para detectar la diabetes abbe el embarazo despus de la semana 24. Diabetes tipo 2, prediabetes Todas las mujeres diagnosticadas con diabetes gestacional Anlisis de por shubham cada navi aos Diabetes tipo 2 Todas las mujeres con prediabetes Anualmente Gonorrea Las mujeres sexualmente activas con mayor riesgo de infeccin En los exmenes de rutina Hepatitis C Todas las mujeres que tienen mayor riesgo En los exmenes de rutina VIH Todas las mujeres deben realizarse la prueba del VIH al menos savannah vez entre los 13 y los 64 aos En los exmenes de rutina Las personas con factores de riesgo de tener el VIH deben hacerse los anlisis anualmente, luiz mnimo. Obesidad Todas las mujeres de reva anup de edad En los exmenes de rutina Sfilis Las mujeres con mayor riesgo de infeccin deben hablar con robbins proveedor de atencin mdica En los exmenes de rutina Tuberculosis Las mujeres con mayor riesgo de infeccin deben hablar con robbins proveedor de atencin mdica Consulte a robbins proveedor de atencin mdica [place] Todas las mujeres de reva anpu de edad Al menos un examen completo entre los 20 y los 30 aos, y dos entre los 30 y los 40 aos Vacuna2 Para quines Frecuencia Varicela Todas las mujeres de reva anup de edad que no tienen registro de bairon tenido esta infeccin o de haberse aplicado esta vacuna Dos dosis. La segunda dosis debera aplicrsela entre cuatro y ocho semanas despus de la primera dosis Hepatitis A Las mujeres con mayor riesgo de infeccin deben hablar con robbins proveedor de atencin mdica Dos dosis que se aplican al menos con seis meses de distancia Hepatitis B Las mujeres con mayor riesgo de infeccin deben hablar con robbins proveedor de atencin mdica Navi dosis a lo waqar de seis meses; la segunda dosis debera aplicarse un mes despus de la primera dosis; la tercera dosis debera aplicarse al menos dos meses despus de la segunda dosis y,al menos, cuatro meses despus de la primera dosis Haemophilus influenzaeTipo B (HIB) Las mujeres con mayor riesgo de infeccin deben hablar con robbins proveedor de atencin mdica Savannah a navi dosis Virus del papiloma humano (VPH) Todas las mujeres de reva anup de edad hasta los 26 aos Navi dosis; la segunda dosis debera aplicarse entre josé manuel y dos meses despus de la primera dosis, y la tercera dosis debera aplicarse seis meses despus de la primera dosis Influenza (gripe) Todas las mujeres de reva anup de edad Savannah vez al ao Sarampin, paperas y rubola (MMR) Todas las mujeres de reva anup de edad que no tienen registro de bairon tenido estas infecciones o de haberse aplicado estas vacunas Savannah o dos dosis Antimeningoccica Las mujeres con mayor riesgo de infeccin deben hablar con robbins proveedor de atencin mdica [place] dosis o ms Antineumoccica conjugada (PCV13) y de polisacridos (PPSV23) Las mujeres con mayor riesgo de infeccin deben hablar con robbins proveedor de atencin mdica PCV13: Savannah dosis entre los 19 y 65 aos (protege contra 13 tipos de bacteria neumoccica) PPSV23: [place]annah a dos dosis hasta los 64 aos de edad, o savannah dosis a partir de los 65 aos (protege contra 23 tipos de bacteria neumoccica) Refuerzo de ttanos/difteria/tos ferina (Td/Tdap) Todas las mujeres de reva anup de edad Td cada channing aos o savannah therese dosis de Tdap en lugar de un refuerzo de Td despus de los 18 aos. Luego, Td cada channing aos Consejera Para quines Frecuencia Pruebas sobre mutacin de los genes BRCA para narcisa el riesgo de tener cncer de ovario y cncer demama Las mujeres con mayor riesgo de tener mutacin de los genes Cuando se conoce robbins riesgo Cncer de mama y prevencin qumica del cncer Las mujeres con alto riesgo de cncer de mama Cuando se conoce robbins riesgo Dieta y actividad fsica Las mujeres que tienen sobrepeso u obesidad Cuando se diagnostica y, luego, en los exmenes de rutina Violencia domstica Las mujeres en edad de tener hijos En los exmenes de rutina Prevencin de infecciones de trasmisin sexual Las mujeres sexualmente activas En los exmenes derutina Cncer de piel Prevencin de cncer de piel en mujeres adultas de piel silvia En los exmenes de rutina Uso del tabaco y los efectos que puede tener sobre la lexus Todas las mujeres de reva anup de edad Todas las visitas 1Segn la [place] [employer], las mujeres entre los 20 y los 39 aos de edad deberan hacerse un examen clnico de mama (CBE) luiz parte de henrietta exmenes de lexus de rutina cada 3 aos. Los autoexmenes de mama son savannah opcin para las mujeres a partir de los 20 aos.Wilfredo la U.S. Preventive Task Force no recomienda los exmenes clnicos de mama. 2Las personas de 18 aos o ms que no estn al da con las vacunas de la infancia deben recibir todas las vacunas de rescate recomendadas por los CDC. [id number] [employer] [place] [address], [place] [address]. All rights reserved. This information is not intended as a substitute for professional medical care. Always follow your healthcare professional's instructions. Patient Education Qu son las infecciones de transmisin sexual (ITS)? Cuando de relaciones sexuales se trata, nada est joseph de riesgos. Todo contacto sexual que tenga que narcisa con el pene, la vagina, el ano o la boca puede propiciar la propagacin de savannah infeccin detransmisin sexual (ITS). Las enfermedades de transmisin sexual incluyen clamidia, gonorrea, herpes, virus de la inmunodeficiencia humana (VIH) y verrugas genitales. Las infecciones de transmisin sexual tambin se conocen luiz enfermedades de transmisin sexual (ETS). La therese manera lara deprevenir las infecciones de transmisin sexual es no tener relaciones sexuales (abstinencia). Sin embargo, existen maneras de hacer que las relaciones sexuales angie ms seguras. Cada vez que tenga rel aciones sexuales, utilice un condn de ltex. Elija robbins teri con isaac. Utilice condones para mayor seguridad. Si tiene relaciones sexuales, los condones de ltex ofrecen la mejor proteccin contra las infecciones de transmisin sexual. Los condones de ltex impiden el intercambio de fluidos corporales que transmiten ciertas infecciones de trasmisin sexual. Adems, limitan el contacto con las zonas afectadas de la piel. Tenga en cuenta que el condn no cubre toda la piel. De modo que la piel afectada que no est cubierta puede an transmitir la enfermedad. No obstante, usted est mejor protegido cuando utiliza un condn que cuando no lo hace. Utilice un condn incluso si est utilizando otros m todos anticonceptivos. Los mtodos anticonceptivos luiz la pldora o los dispositivos intrauterinos (DIU) ayudan a prevenir el embarazo, wilfredo no protegen contra las infecciones de transmisin sexual. Elija el condn adecuado Los condones de ltex ofrecen la mejor proteccin contra las enfermedades. Si es alrgico al ltex, entonces utilice condones de poliuretano. Los condones masculinos se colocan sobre el pene. Los condones femeninos recubren la vagina. Antes de comprar un condn, eric la etiqueta para asegurarse deque ayude a prevenir enfermedades, ya que algunos condones nuevos no ofrecen proteccin. El lubricante adecuado es importante Compre condones lubricados o utilice lubricante. [place] ofrece mayor comodidad y reduce el riesgo de que se rompa el condn. Utilice solo lubricantes a base de agua. No use aceite, locin ni vaselina ya que pueden debilitar el condn y hacer que se rompa. Asimismo, se recomienda utilizar lubricantes sin nonoxinol- 9. Reva espermicida puede causar irritacin y aumentar el riesgo de contraer ciertas infecciones de transmisin sexual. Utilice los condones correctamente Para que los condones angie eficaces, deben utilizarse correctamente. Tenga presente las siguientes sugerencias. Cada vez que tenga relaciones sexuales, utilice un condn de ltex nuevo. Pngase el condn en el pene antes de que se produzca cualquier contacto. Cuando se disponga a sacar el pene, sostenga el kirstin del condn a medida que lo extrae. [place] evitar que se le salga el condn. Antes de utilizar un condn, verifique robbins fecha de vencimiento. No guarde los condones en lugares que puedan calentarse, luiz el auto o la billetera que se llevaen un bolsillo trasero. Conozca a robbins teri Las relaciones sexuales seguras representan un proceso que supone llegar a conocer juanito a la teri y michael decisiones informadas. Es importante hablar de cuntas parejas rich tenido cada brett en el pasado y cuntas tiene en la actualidad. Averige si alguno de los dos tiene VIH o alguna otra infeccin de transmisin sexual. Si deciden tener relaciones sexuales, utilicen un condn cada vez que lo juaquin. No deje de utilizar condones a menos que tenga la certeza de que ninguno de los dos tiene otras parejas y ambos se hayan realizado pruebas para comprobar que no tienen VIH ni ninguna otra infeccin de transmisin sexual. Luego, mantngase joseph de enfermedades teniendo solo relaciones sexua les el josé manuel con el otro (monogamia). Mantngase en control No deje que el alcohol ni las drogas le nublen el juicio, ya que lo pueden llevar a tener relacionessexuales con alguien que usted no habra elegido de bairon estado sobrio. Tambin es posible que olvide utilizar un condn. Si tiene pensado tener relaciones sexuales, lleve siempre consigo un condn. No espere hasta que se encuentre en medio de savnanah situacin apasionada para intentar encontrar josé manuel. Considere la abstinencia La therese manera de estar seguro de que no contraer savannah infeccin de transmisin sexual es abstenerse de tener relaciones sexuales. La abstinencia es savannah decisin que muchas personas rox en algn momento de henrietta vidas. Rush vez desee esperar hasta estar convencido de que est listo para tener re laciones sexuales. Quizs quiera michael un descanso de las responsabilidades que supone tener relaciones sexuales; o es posible que quiera conocer mejor a robbins teri antes de eda el siguiente paso. La abstinencia es savannah decisin que usted puede michael ahora para proteger robbins futuro. [id number] [employer] [address] [place] [id number]. Todos los derechos reservados. Esta informacin no pretende sustituir la atencin mdica profesional. Slo robbins mdico puede diagnosticar y tratar un problema de lexus. Patient Education Qu es el VIH y el SIDA Es importante saber disc jockey puede entrar el VIH en el cuerpo y qu pasa savannah vez que haya entrado. Entonces, estar mejor preparado para protegerse a usted mismo y a otros contra reva virus. [place]annah personaque tiene el VIH puede verse y sentirse perfectamente. Wilfredo nancy persona puede contagiar de VIH a otros lorenzo pronto est infectado. Si mantiene relaciones sexuales inseguras y sin proteccin, o comparte agujas, corre el riesgo de contraer el VIH. Consulte a robbins proveedor de atencin mdica sobre disc jockey protegerse a usted mismo y asus seres queridos contra el contagio del VIH. Pellet Preparation Operator evoluciona la infeccin por el VIH Despus de que el VIH entra en el cuerpo humano, ataca el sistema inmunitario por etapas, que se detallan a continuacin. [place]annah persona con el VIH puede infectar a otros en el momento en que entra el virus en la gonzález. VIH asintomtico: [place] persona con el VIH puede no presentar ningn sntoma abbe aos. La therese seal de infeccin puede ser el resultado positivo de los anlisis de gonzález para detectar el VIH, de 2 semanas a 3 meses o ms despus de que el VIH haya entrado al organismo. VIH sintomtico:Algunas personas desarrollan savannah enfermedad similar a la mononucleosis 2 a 4 semanas despus de que el virus entra al organismo. [place] se denomina sndrome retroviral mary. Los sntomas pueden incluir: ganglios linfticos inflamados, escalofros, fiebre, sudores nocturnos, debilidad, prdida de peso, erupciones cutneas y llagas en la boca o dolor de garganta. Los sntomas pueden ser leves o la persona puede sentirse muy mal. Incluso sin tratamiento, los sntomas carrie siempre desaparecen en unos apple o hasta 2 a 3 semanas. Entonces, la persona no tiene sntomas, a menudo por aos. Sin embargo, con el tiempo, el sistema inmunitario comienza a debilitarse y los sntomas comienzan a aparecer. Las personas en esta etapa pueden tener savannah infeccin por levaduras en la boca (candidiasis oral), culebrilla, problemas en la piel, neumona, diarrea que no desaparece, o prdida de peso. SIDA. El SIDA es la etapa ms avanzada de la infeccin por el VIH, cuando el sistema inmunitario se ve gravemente debilitado. Determinadas enfermedades raras y tipos de cncer que normalmente no ocurren, pueden presentarse ahora porque el cuerpo ya no puede combatirlos con la eficiencia suficiente.Estas enfermedades son las que, con frecuencia, pueden causar la muerte en las personas con SIDA. ElVIH tambin puede atacar al cerebro y al sistema nervioso. [place] causa convulsiones y prdida de lamemoria y el movimiento corporal. Tambin afecta muchas otras partes del cuerpo. [place] genera problemas luiz anemia, recuento bajo de glbulos blancos, diarrea, dolor estomacal, problemas en la piel ymuchos otros. Pellet Preparation Operator entra el VIH al cuerpo El VIH es transportado por el semen, el fluido vaginal, la gonzález y la leche materna. Cuando se tienen relaciones sexuales, el VIH puede entrar en el cuerpo a travs de los frgilestejidos y recubrimientos, llagas o velarde en la vagina, el pene, el ano y la boca o alrededor de estos. Con el uso de drogas, tatuajes o perforaciones del cuerpo, el virus puede entrar en la gonzález a travs de savannah aguja infectada. [place]annah madre que tenga el VIH puede transmitir el virus a robbins beb abbe el embarazo, en el momento del parto o al amamantarlo. [id number] [employer] [address] [place] [id number]. Todos los derechos reservados. Esta informacin no pretende sustituir la atencin mdica profesional. Slo robbins mdico puede diagnosticar y tratar un problema de lexus. Patient Education Lexus de los senos: Conocimiento de los propios senos Qu es el conocimiento de los propios senos? El conocimiento de los propios senos es saber disc jockey se cruzito y se sienten normalmente henrietta senos. Henrietta senos cambian a lo waqar de las diferentes etapas de la shubham. Por eso, es importante saber qu es lo normal en el travis de henrietta senos. Conocer henrietta propios senos le ayudar a darse cuenta de inmediato de cualquier cambio que pudiese bairon en henrietta senos. Informe de cualquier cambio a [place]bbins proveedor de atencin mdica. Por qu es importante el conocimiento de los propios senos? Muchos expertos dicen ahora que las mujeres deberan conocer mejor henrietta senos en lugar de hacerse unautoexamen de los senos (BSE, por henrietta siglas en ingls). Tales expertos son, por ejemplo, la Sociedad Americana contra el Cncer, el U.S. Preventive Services Task Force (USPSTF, Anup de tareas dedicado a los servicios preventivos en EE. UU.) y el [place] [employer]gio [employer]o de Obstetras y Gineclogos). Algunos expertos incluso aconsejan no ensearles peterson mujeres a hacerse un autoexamen de los senos. Eso es porque las investigaciones realizadas no luke demostrado que charmaine tipo de autoexamen tenga algn beneficio. El conocimiento de los propios senos es diferente del autoexamen. No tiene que narcisa con seguir un cierto mtodo y cronograma. Tiene que narcisa con saber qu es lo normal en el travis de henrietta senos. As, usted podr notar de inmediato hasta los cambios ms pequeos. Si percibe algn cambio, informe a [place]bbins proveedor de atencin mdica. Cambios a los que debe prestar atencin Llame a robbins proveedor de atencin mdica si ve algn cambio en henrietta senos que le preocupe. Estos cambios pueden incluir, por ejemplo: Un bulto Secrecin del pezn que no sea leche materna, especialmente, si tiene rastros de gonzález Inflamacin Un cambio en la forma o el tamao Irritacin de la piel, luiz enrojecimiento, engrosamiento o hundimiento de la piel Ganglios linfticos inflamados en la axila Problemas en los pezones, luiz dolor o enrojecimiento Si encuentra un bulto Comunquese con robbins proveedor si nota algn tipo de dureza en josé manuel de henrietta senos, siente algo diferente en el tejido o, definitivamente, palpa un bulto. En ocasiones, las durezas pueden deberse a los cambios menstruales. Wilfredo puede que haya motivos para preocuparse. [place]bins proveedor querr verla de inmediato si usted tiene: [place]annah secrecin sanguinolenta del pezn Cambios en la piel, luiz hundimiento o pliegues Es normal que se preocupe si encuentra un bulto. Wilfredo es importante que se comunique de inmediato con robbins proveedor. Recuerde que la mayora de los bultos en los senos son benignos. Eso significa que no son cancerosos. [id number] [employer] [address] [place] [id number]. Todos los derechos reservados. Esta informacin no pretende sustituir la atencin mdica profesional. Slo robbins mdico puede diagnosticar y tratar un problema de lexus. Patient Education Examen clnico de seno Muchas organizaciones de lexus recomiendan hacerse un examen clnico de seno por ao. Reva examen puede ser realizado por un gineclogo, proveedor de atencin mdica de laila, enfermera profesional, enfermera obsttrica o enfermera especializada. Los exmenes de seno anuales ayudan a garantizar que las afecciones de los senos se detecten a tiempo. Funcin de robbins proveedor de atencin mdica El profesional de la atencin mdica conoce los estudios y cuidados de seguimiento necesarios si se detecta algn problema. Robbins examen clnico representa tambin savannah excelente oportunidad para plantear preguntas acerca del autoexamen de seno. Usted podr saber si est realizando robbins autoexamen tobias manera ms eficaz. Igualmente, puede preguntar sobre disc jockey el embarazo, los implantes de seno o la ciruga de reduccin de seno afectan la manera en que usted deber examinarse los senos. Estudios de diagnstico Si un examen clnico revela un cambio en los senos, se pueden efectuar otros estudios para saber ms, por ejemplo: Mamografa. Asher X de baja dosis utilizados para crear imgenes del tejido interior del seno. Ultrasonido. Utilizacin de ondas de amber para crear savannah imagen del seno. Biopsia. Remocin de savannah pequea cantidad de tejido del seno mediante savannah aguja o savannah incisin. El tejido se examina luego con un microscopio. Normas para realizarse exmenes clnicos de seno ElAmerican College of Obstetricians and Gynecologists ([employer] y Gineclogos) recomienda que, a partir de los 29 aos de edad, usted debe hacerse a un examen clnico de seno cada josé manuel a navi aos. Despus de los 40, deber hacerse el examen clnico de seno anualmente. Si tiene mayor riesgo de padecer cncer de seno, puede requerir exmenes ms frecuentes. Entrelos factores de riesgo del cncer de seno se encuentran los siguientes: Ser mayor de 50 aos o estar en etapa posmenopusica Tener antecedentes familiares de cncer de seno Tener la mutacin del gen BRCA1 o BRCA2 u otras determinadas mutaciones genticas Bairon tenido ms menstruaciones por bairon empezado a menstruar a edad temprana (antes de los 12 aos) o bairon tenido savannah menopausia tarda (despus de los 55 aos) No bairon tenido embarazos Bairon tenido un primer embarazo despus de los 30 aos Obesidad Tener un historial de tratamiento con asher en la andrew de robbins pecho Exposicin al dietilestilbestrol(ELLEN)abbe el embarazo de robbins madre No ser activo Beber alcohol en exceso Tener tejido mamario denso Realizar terapia hormonal despus de la menopausia Otras organizaciones de lexus tienen diferentes recomendaciones. Hable con robbins proveedor de atencinmdica sobre lo que es mejor para usted. [id number] [employer]. [address] [place] [id number]. Todos los derechos reservados. Esta informacin no pretende sustituir la atencin mdica profesional. Slo robbins mdico puede diagnosticar y tratar un problema de lexus. Patient Education Pellet Preparation Operator entender [employer] (2houses) [employer] [place] ([place]DA por henrietta siglas en [facility]) rich emitido unaserie de pautas para ayudarle a elegir juanito henrietta comidas bajo el nombre de Mi[employer]ato (MyPlate en [facility]). MiPlato muestra los grupos de alimentos que conforman savannah comida saludable utilizando la imagen de un plato y un vaso. Antes de comer, piense en las opciones de alimentos ms saludables que puede poner en robbins plato, vaso o tazn. Para aprender ms acerca de un plato saludable, visite www.choosemyplate.gov. Los grupos de alimentos Frutas: Cualquier fruta o jugo de fruta al 100% cuenta dentro de reva anup. Las frutas pueden ser frescas, enlatadas, congeladas o secas, y pueden ser enteras, en trozos o en pur. Guero que la mitad de robbins plato angie frutas y vegetales. Vegetales: Cualquier vegetal o jugo de vegetales al 100% cuenta dentro de reva anup. Los vegetales pueden ser frescos, congelados, enlatados o secos. Pueden servirse crudos o cocidos y pueden ser enteros, cortados o en pur. Guero que la mitad de robbins plato angie frutas y vegetales. Granos: Todos los alimentos hechos a base de granos levi parte de reva anup. [place] incluye panes, pasta, cereales, tortillas y grits de freddy, arroz, elder, cebada y harina de elder y de vaughn. Los granos no deben ser ms de la cuarta parte de robbins plato. Al menos la mitad de los granos que consuma deben ser integrales. Protena: Reva anup incluye carne, quinton, pescados y mariscos, frijoles y chcharos (arvejas),huevos, productos de soya procesada (luiz tofu), nueces (incluidas las mantequillas de nueces), y semillas. Guero que las protenas no angie ms de la cuarta parte de robbins plato. Las opciones de cong ypollo deben ser magras o bajas en grasa. Lcteos: Todos los productos lquidos de leche y los productos a base de leche que contengan calcio, luiz yogures y quesos, son parte de reva anup. (Los alimentos con poco contenido de calcio, luiz la crema, la mantequilla y el queso crema, no se incluyen en reva anup). La mayora de las opciones de lcteos deben ser bajos de grasa o sin grasa. Aceites: Estas son las grasas lquidas a temperatura ambiente, incluidos los aceites de canola, vaughn, lin, soya y girasol. Los alimentos que son la mayor parte aceites son mayonesa, ciertos aderezos para ensalada y las margarinas blandas. Usted debe consumir solo de 5 a 7 cucharaditas de aceites al da. Es probable que ya obtenga esta cantidad de los alimentos que come. [employer]. [address] [place] [address], [place] [address]. Todos los derechos reservados. Esta informacin no pretende sustituir la atencin mdica profesional. Slo robbins mdico puede diagnosticar y tratar un problema de lexus. documented in this encounter Progress Notes Symone Hill, HOT BRAIDER - 04/26/2020 2:30 PM CDT Chief complaint: Chief Complaint Patient presents with Initial Visit CC: Initial Visit Allison Cheung is a 24 year old, , /White female. Patient's last menstrual period was 03/28/2020 (approximate). She is 4w1d with an intrauterine . Her Estimated Date of Delivery: 01/02/21. She is being seen today for her first obstetrical visit. She complains today of: Breast tenderness. She reports the right breast tenderness located in the right lower quadrant. Tenderness has occurred for 1 week(s). Associated symptoms include none. Precipitating factors include none. Also complains of headaches at night. Patient denies recent foreign travel. Denies current physical, emotional or sexual abuse. OB History T1 L1 SAB0 TAB0 Ectopic0 Multiple0 Live Births1 Name of Baby 1: Not recorded Date: 12/25/14 GA: 37w0d Delivery: Normal Spontaneous Vaginal Apgar1: Not recorded Apgar5: Not recorded Living: Living Name of Baby 2: Not recorded Date: Not recorded GA: Not recorded Delivery: Not recorded Apgar1: Not recorded Apgar5: Not recorded Living: Not recorded Histories OB History Para Term AB Living 2 1 1 1 SAB TAB Ectopic Multiple Live Births 1 # Outcome Date GA Lbr Yosi/2nd Weight Sex Delivery Anes PTL Lv 2 Current 1 Term 12/25/14 37w0d 6 lb 10 oz (3.005 kg) M NORMAL SPONT N REDDY History reviewed. No pertinent past medical history. Family History Problem Relation Age of Onset Asthma NoFHx Arthritis NoFHx defects NoFHx Breast Cancer NoFHx Colon Cancer NoFHx Uterine Cancer NoFHx Ovarian Cancer NoFHx Cancer NoFHx Depression NoFHx Diabetes NoFHx Genetic NoFHx Heart NoFHx High cholesterol NoFHx Hypertension NoFHx Neurological NoFHx Mental retardation NoFHx Osteoporosis NoFHx Other - see comments NoFHx Psychiatry NoFHx No family status information on file. History reviewed. No pertinent surgical history. Social History Socioeconomic History Marital status: Single Spouse name: Not on file Number of children: Not on file Years of education: Not on file Highest education level: Not on file Occupational History Not on file Social Needs Financial resource strain: Not on file Food insecurity: Worry: Not on file Inability: Not on file Transportation needs: Medical: Not on file Non-medical: Not on file Tobacco Use Smoking status: Never Smoker Smokeless tobacco: Never Used Substance and Sexual Activity Alcohol use: No Alcohol/week: 0.0 standard drinks Drug use: No Sexual activity: Yes Partners: Male control/protection: None Comment: last sexual mttbvzehaet18/30/2020 Lifestyle Physical activity: Days per week: Not on file Minutes per session: Not on file Stress: Not on file Relationships Social connections: Talks on phone: Not on file Gets together: Not on file Attends denominational service: Not on file Active member of club or organization: Not on file Attends meetings of clubs or organizations: Not on file Relationship status: Not on file Intimate partner violence: Fear of current or ex partner: Not on file Emotionally abused: Not on file Physically abused: Not on file Forced sexual activity: Not on file Other Topics Concern Not on file Social History Narrative Pt lives with boyfriend. Pt denies abuse. Pt has no pets. Social History Substance and Sexual Activity Sexual Activity Yes Partners: Male control/protection: None Comment: last sexual pceqbgdxdvs30/30/2020 Genetic Screen Autism / Mental Retardation: No Gisella Disease: No Congenital Heart Defect: No Cystic Fibrosis: No Down Syndrome: No Familial Dysautonomia: No Hemophilia or other Blood Disorders: No [place] Chorea: No Maternal Metabolic Disorder--specify (eg. Type 1 Diabetes, PKU): No Muscular Dystrophy: No Neural Tube Defect: No Recurrent Loss or a Stillbirth: No Sickle Cell Disease or Trait: No Junaid Sachs: No Teratological Substances (specify type & strength/dose) since LMP: No Thalassemia: No Other Inherited Genetic or Chromosomal Disorder (specify): No No Significant History of Genetic Disorders: No Significant History of Genetic Disorders Labs Labs are pending. Radiology No new radiology. Allergies Allison has No Known Allergies. Medications Allison has a current medication list which includes the following Facility- Administered Medications:medroxyprogesterone. Review of Systems Constitutional: Negative. Negative for appetite change, fatigue and fever. HENT: Negative. Eyes: Negative. Negative for visual disturbance. Respiratory: Negative. Breasts: Positive for pain. Negative for discharge and mass. Cardiovascular: Negative. Negative for palpitations and leg swelling. Gastrointestinal: Negative. Negative for abdominal pain, constipation, diarrhea, nausea and vomiting. Genitourinary: Negative. Negative for dysuria, vaginal bleeding, vaginal discharge and pelvic pain. Musculoskeletal: Negative. Skin: Negative. Negative for rash. Neurological: Negative. Negative for dizziness, light-headedness and headaches. Psychiatric/Behavioral: Negative. Endocrine: Endocrine negative BP 120/74 (BP Location: Right arm, Patient Position: Sitting, BP CUFF SIZE: Adult Medium) | Pulse 91 | Temp 37.7 C (99.8 F) (Oral) | Resp 16 | Ht 5' 4" (1.626 m) | Wt 142 lb 2 oz (64.5 kg) | LMP 03/28/2020 (Approximate) | BMI 24.40 kg/m Pregravid BMI: Could not be calculated Physical Exam Vitals reviewed. Constitutional: She is oriented to person, place, and time. She appears well- developed and well-nourished. Her body habitus is normal. See flowsheet Neck: No thyroid nodules and no thyromegaly palpated. Cardiovascular: Regular rate and rhythm. No murmur auscultated. No peripheral edema present. Pulmonary/Chest: Breath sounds clear to auscultation. Normal inspiratory effort. Abdominal: Abdomen is soft. No mass palpated. No tenderness present. There is no hepatosplenomegaly. Neuro/Psychiatric: She has a normal mood and affect. She is oriented to person, place, and time. Skin: Skin normal. No lesion and no rash present. Genitourinary Comments: Chaperoned by: Jac Rowland RN Breast: Right breast exhibits tenderness. Right breast exhibits no mass and no nipple discharge. Left breast exhibits no mass, no nipple discharge and no tenderness. Normal left breast and normal rightbreast External genitalia: Normal external genitalia appropriate for age. No labial lesion. Bladder: No tenderness. Normal bladder Vagina:Normal vagina. No lesion inspected. No abnormal vaginal discharge found. Cervix: Normal cervix. No lesion. No tenderness and no discharge present. Uterus: Uterus is normal size, normal position and non-tender. Normal uterus Adnexa: Right adnexa without tenderness. Left adnexa without tenderness. Normal left adnexa and normal right adnexa Assessment/Plan 1. Supervision of high risk in first trimester 4w1d by LMP New OB packet reviewed TWG discussed Discussed recommendation for social distancing and PPE use Initiate Vitamins Increase Fluid Intake. Minimum of 8 water bottles daily. Discussed recommendations for breast tenderness and headaches and warning signs for mastitis - POCT TEST - POCT URINALYSIS W/O SPECIFIC GRAVITY - GLUCOSE 1 HOUR POST PRANDIAL; Future - CBC WITH DIFF - HEPATITIS B SURFACE ANTIGEN - HIV 1/2 AG-AB WITH REFLEX - WORKUP, BLOOD BANK - RUBELLA SCREEN (BERNY) IGG - GALV ONLY - SYPHILIS IGG/IGM - URINE CULTURE - POCT URINALYSIS W/O SPECIFIC GRAVITY; Standing - PAP Smear-Liquid Based - GC & CHLAMYDIA AMPLIFIED ASSAY - CBC WITH DIFFERENTIAL 2. Multiparity Return to clinic in 4 weeks. Discussed treatment options. Reviewed patient instructions and provided printed copy. at 4w1d This visit did not involve counseling and coordination that comprised more than 50% of the visit time. Diallo Rowland RN - 04/26/2020 2:30 PM CDTPatient is 24 year old female here for current . Patient is . 1) Previous delivery methods vaginal 2) Patient is not experiencing cramping 3) Patient is not experiencing bleeding. 4) LMP 03/28/2020 5) Last Pap was: n/a Results: N/a 6) Have you had a flu vaccine this season? no 7) PPD candidate? no 8) Patient complains of Breast pain. 9) Patient denies history of physical, emotional, or sexual abuse. Patient states she currently feels safe at home. documented in this encounter Plan of Treatment Date Type Specialty Care Team Description 05/24/2020 Routine Visit OB Satellites Symone Hill, HOT BRAIDER [address] [place], [place] [address] [phone] Name Type Priority Associated Diagnoses Date/Ti me GLUCOSE 1 HOUR POST LAB Routine Supervision of high r isk 04/26/2020 3:50 PM PRANDIAL in first CDT trimester CBC WITH DIFF LAB Routine Supervision of high risk 3:50 PM in first CDT trimester HEPATITIS B SURFACE LAB Routine Supervision of high r isk 04/26/2020 3:50 PM ANTIGEN in first CDT trimester HIV 1/2 AG-AB WITH REFLEX LAB Routine Supervision of high risk 04/26/2020 3:50 PM in first CDT trimester RUBELLA SCREEN (BERNY) LAB Routine Supervision of hig h risk 04/26/2020 3:50 PM IGG in first CDT trimester GALV ONLY - SYPHILIS LAB Routine Supervision of high risk 04/26/2020 3:50 PM IGG/IGM in first CDT trimester URINE CULTURE LAB Routine Supervision of high risk 3:23 PM in first CDT trimester PAP Smear-Liquid Based LAB Routine Supervision of hig h risk 04/26/2020 3:23 PM in first CDT trimester GC & CHLAMYDIA AMPLIFIED LAB Routine Supervision of h igh risk 04/26/2020 3:23 PM ASSAY in first CDT trimester CBC WITH DIFFERENTIAL LAB Routine Supervision of high risk 04/26/2020 3:50 PM in first CDT trimester Name Type Priority Associated Diagnoses Order S chedule GLUCOSE 1 HOUR POST LAB Routine Supervision of high r isk Expected: 04/26/2020, PRANDIAL in first Expires: 04/26/2021 trimester WORKUP, BLOOD LAB Routine Supervision of hig h risk Ordered: 04/26/2020 BANK in first trimester POCT URINALYSIS W/O LAB Routine Supervision of high r isk 20 Occurrences starting SPECIFIC GRAVITY in first 04/26 until trimester 04/26/2021 Health Maintenance Due Date Last Done Comments CHLAMYDIA SCREENING 12/03/2017 12/03/2016, 11/18/2016 PAP SMEAR 2018 INFLUENZA VACCINE (#1) 2020 HPV VACCINES (2 - Female 04/17/2021 11/18/2016 Postpon ed from 12/16/2016 3-dose series) ( or ) Depression Screening 04/26/2021 04/26/2020, 04/26/2020 MENINGOCOCCAL B VACCINES (1 04/26/2021 Post poned from 12/26/2007 of 2 - Risk Bexsero 2-dose (Preg nant or series) ) VARICELLA VACCINES (1 of 2 - 04/26/2021 Pos tponed from 1998 2-dose childhood series) (Pregna nt or ) DTaP,Tdap,and Td Vaccines (2 10/26/2024 10/26/2014 - Td) MENINGOCOCCAL VACCINE Aged Out No longer eligible based on patient's age to complete this to pic PNEUMOCOCCAL 0-64 YEARS Aged Out No longe r eligible based COMBINED SERIES on patient's age to complete this to pic documented as of this encounter Procedures Procedure Name Priority Date/Time Associated Diagnosis Comme nts POCT TEST Routine 04/26/2020 2:53 Supervision of hi gh Results for this PM CDT risk in procedure are in first trimester the results section. POCT URINALYSIS W/O Routine 04/26/2020 2:52 Supervision of hi gh Results for this SPECIFIC GRAVITY PM CDT risk in proced ure are in first trimester the results section. documented in this encounter Results POCT TEST (04/26/2020 2:53 PM CDT) Pathologist Sig nature POCT PREG Positive On board controls acceptable Yes with C Line POCT PREG LOT # POCT PREG TEST DATE Specimen Urine - URINE, CLEAN CATCH POCT URINALYSIS W/O SPECIFIC GRAVITY (04/26/2020 2:52 PM CDT) Pathologist Sig nature POCT PH U 5 5 - 8 mg/dl POCT U LEUK EST trace Negative - Negative POCT U NIT neg Negative - Negative POCT U PROT trace Negative - Negative POCT U GLU neg Negative - Negative POCT U KETONE neg Negative - Negative POCT U BLD neg Negative - Negative Specimen Urine - URINE, CLEAN CATCH documented in this encounter Visit Diagnoses Diagnosis Supervision of high risk in fi rst trimester - Primary Unspecified high-risk Multiparity documented in this encounter Insurance Payer Benefit Plan / Subscriber ID Effective Phone Address T ype Group Dates MEDICAID MEDICAID PENDING [id number] Pending PENDING PENDING nt [place] [id number] [facility] [id number] [place] [id number] documented as of this encounter
--- OUTSIDE RECORDS SUMMARY | 2020-05-03 15:47 | XMS REPORT | Summary of Care ---
:1995 Author Organization [facility] Address [address] [place] [address] Care Team Providers Name Role Phone Shruti Ferrer [facility] Primary Care Provider [phone] Reason for Visit Reason Comments Initial Visit Encounter Details Date Type Department Care Team Description 04/26/2020 Initial [facility] Symone Hill pervision of high risk in first trimester (Primary Dx); Visit CADY Raya [facility] [address] [facility] [address] [facility] [place] [phone] Allergies No Known Allergiesdocumented as of this [...] Facility Administered Medication medroxyPROGESTERone 150 mg IM [id number] 09/16/2017 Active (DEPO-PROVERA) injection 150 mgIndications: Depo-Provera [...] clnico de mamascada 3 aos1 Cncer del carla uterino Las mujeres de 21 aos o [...] Consulte a robbins proveedor de atencin mdica [place] Todas las mujeres de reva anup de edad Al menos un examen completo [...] mayor riesgo de infeccin deben hablar con robbisn proveedor de atencin mdica [place] a navi dosis Virus del papiloma humano [...] hasta los 64 aos de edad, o savannha dosis a partir de los 65 aos [...] de piel en mujeres adultas de piel islvia En los exmenes de rutina Uso del tabaco y los efectos que puede tener sobre la lexus Todas las mujeres de reva anup de edad Todas las visitas 1Segn la [employer], las mujeres entre los 20 [...] vacunas de rescate recomendadas por los CDC. [phone] [email or web address]. [address] [place] [address], [place] [address]. All rights reserved. This information is not [...] importante Compre condones lubricados o utilice lubricante. Davis ofrece mayor comodidad y reduce el riesgo [...] del condn a medida que lo extrae. Davis evitar que se le salga el condn. [...] hasta que se encuentre en medio de savannah situacin apasionada para intentar encontrar josé manuel. [...] puede michael ahora para proteger robbins futuro. [phone] [email or web address]. [address] [place] [address]. Todos los derechos reservados. Esta informacin no pretende sustituir la atencin mdica profesional. Slo robbins mdico puede diagnosticar y tratar un problema de lexus. Patient Education Qu es el VIH y el SIDA Es importante saber supervisor computer operations puede entrar el VIH en el cuerpo [...] a robbins proveedor de atencin mdica sobre supervisor computer operations protegerse a usted mismo y asus seres queridos contra el contagio del VIH. It Senior Software Engineer Java evoluciona la infeccin por el VIH Despus [...] de que el virus entra al organismo. Davis se denomina sndrome retroviral mary. Los sntomas [...] atacar al cerebro y al sistema nervioso. Davis causa convulsiones y prdida de lamemoria y el movimiento corporal. Tambin afecta muchas otras partes del cuerpo. Davis genera problemas luiz anemia, recuento bajo de glbulos blancos, diarrea, dolor estomacal, problemas en la piel ymuchos otros. It Senior Software Engineer [employer] entra el VIH al cuerpo El VIH [...] el momento del parto o al amamantarlo. [phone] [email or web address]. [address] [place] [address]. Todos los derechos reservados. Esta informacin no pretende sustituir la atencin mdica profesional. Slo robbins mdico puede diagnosticar y tratar un problema de lexus. Patient Education Lexus de los senos: Conocimiento de los propios senos Qu es el conocimiento de los propios senos? El conocimiento de los propios senos es saber supervisor computer operations se cruzito y se sienten normalmente henrietta [...] servicios preventivos en [place] y el [employer] de [...] benignos. Eso significa que no son cancerosos. [phone] [email or web address]. [address] [place] [address]. Todos los derechos reservados. Esta informacin no [...] manera ms eficaz. Igualmente, puede preguntar sobre supervisor computer operations el embarazo, los implantes de seno o [...] sobre lo que es mejor para usted. [phone] [email or web address]. [address] [place] [address]. Todos los derechos reservados. Esta informacin no pretende sustituir la atencin mdica profesional. Slo robbins mdico puede diagnosticar y tratar un problema de lexus. Patient Education It Senior Software Engineer Java entender [employer] ([employer]) El [employer] los [place] ([place] por henrietta siglas en [facility]) rich emitido unaserie de pautas para ayudarle a elegir juanito henrietta comidas bajo el nombre de [employer] ([employer] en [facility]). [employer] muestra los grupos de alimentos que [...] de granos levi parte de reva anup. Davis incluye panes, pasta, cereales, tortillas y grits [...] cantidad de los alimentos que come. [email or web address]. [address] [place] [address], [place] [address]. Todos los derechos reservados. Esta informacin no pretende sustituir la atencin mdica profesional. Slo robbins mdico puede diagnosticar y tratar un problema de lexus. documented in this encounter [employer] Symone Hill, SUGAR CANE PLANTER MACHINE OPERATOR - 04/26/2020 2:30 PM CDT Chief complaint: [...] Partners: Male control/protection: None Comment: last sexual [id number]/30/2020 Lifestyle Physical activity: Days per week: Not on file Minutes per session: Not on file Stress: Not on file Relationships Social connections: Talks on phone: Not on file Gets together: Not on file Attends latter-day service: Not on file Active member of [...] Partners: Male control/protection: None Comment: last sexual [id number]/30/2020 Genetic Screen Autism / Mental Retardation: No Gisella Disease: No Congenital Heart Defect: No Cystic Fibrosis: No Down Syndrome: No Familial Dysautonomia: No Hemophilia or other Blood Disorders: No [place] Chorea: No Maternal Metabolic Disorder--specify (eg. Type [...] 05/24/2020 Routine Visit [facility] Symone Hill, SUGAR CANE PLANTER MACHINE OPERATOR [address] [place], [place] [address] [phone] Name Type Priority Associated Diagnoses Date/Ti me URINE CULTURE LAB Routine Supervision of high risk 3:23 PM CDT in first trimester PAP Smear-Liquid Based LAB Routine Supervision of hig h risk 04/26/2020 3:23 PM CDT in first trimester GC & CHLAMYDIA LAB Routine Supervision of high risk 0 04/26/2020 3:23 PM CDT AMPLIFIED ASSAY in first trimester Name Type Priority Associated Diagnoses Order S chedule GLUCOSE 1 HOUR POST LAB Routine Supervision of high E xpected: 04/26/2020, PRANDIAL risk in first Expi res: 04/26/2021 trimester CBC WITH DIFF LAB Routine Supervision of high Ordered : 04/26/2020 risk in first trimester HEPATITIS B SURFACE LAB Routine Supervision of high O rdered: 04/26/2020 ANTIGEN risk in first trimester HIV 1/2 AG-AB WITH REFLEX LAB Routine Supervision of high Ordered: 04/26/2020 risk in first trimester WORKUP, BLOOD LAB Routine Supervision of hig h Ordered: 04/26/2020 BANK risk in first trimester RUBELLA SCREEN (BERNY) LAB Routine Supervision of hig h Ordered: 04/26/2020 IGG risk in first trimester GALV ONLY - SYPHILIS LAB Routine Supervision of high Ordered: 04/26/2020 IGG/IGM risk in first trimester POCT URINALYSIS W/O LAB Routine Supervision of high 2 0 Occurrences starting SPECIFIC GRAVITY risk in first 04/26/2020 until trimester 04/26/2021 CBC WITH DIFFERENTIAL LAB Routine Supervision of high Ordered: 04/26/2020 risk in first trimester Health Maintenance Due Date Last Done Comments [...] T ype Group Dates MEDICAID MEDICAID PENDING 2020-[address] Pending PENDING PENDING nt [facility] [phone] documented as of this encounter
[2020-05-03 16:03] VITALS: BP 113/77; TEMP 98.3; O2SAT 100
== END 2020-05-03 15:56 | disposition home or self-care (01) ==
LOC: ER 14:02
DX: O98.511 Other viral diseases complicating pregnancy, first trimester (principal); O99.511 Diseases of the respiratory system complicating pregnancy, first trimester; U07.1 COVID-19; J98.8 Other specified respiratory disorders; Z3A.01 Less than 8 weeks gestation of pregnancy
CPT/HCPCS: 99283; Q0169; U0001